=== PATIENT | female | born 1985 | race Caucasian/White ===

== ENCOUNTER 2023-05-22 10:03 | Day surgery (SDC) | payer MEDICAID ==
[~2023-05-22] VITALS: Ht 149.9 cm; Wt 75.3 kg
[2023-05-22] MEDS ORDERED: ONDANSETRON 4 MG/2 ML VIAL ONE ×2 (11:42→12:15)
[2023-05-22] MEDS ORDERED: KETOROLAC 30 MG/ML VIAL ONE ×2 (11:42→12:15)
[2023-05-22] MEDS ORDERED: PROPOFOL 200 MG/20 ML VIAL IV ONE ×2 (11:42→12:15)
[2023-05-22] MEDS ORDERED: DEXAMETHASONE 4 MG/ML VIAL ONE ×2 (11:42→12:15)
[2023-05-22] MEDS ORDERED: METHYLERGONOVINE 0.2 MG/ML AMP ONE ×2 (12:15→12:34)
[2023-05-22] MEDS ORDERED: DESFLURANE 240 ML BTL INH ONE (12:15)
[2023-05-22] MEDS ORDERED: fentaNYL citrate 0.05 MG/ML VIAL ONE (12:18)
[2023-05-22] MEDS ORDERED: HYDROmorphone PFS 2 MG/ML SYR ONE (12:48)
[2023-05-22] MEDS ORDERED: ONDANSETRON 4 MG/2 ML VIAL IVP PRN (12:50)
[2023-05-22] MEDS ORDERED: HYDROmorphone 1 MG/ML AMP IVP PRN (12:50)
== END 2023-05-22 15:26 | disposition home or self-care (01) ==
LOC: MDS 10:03 → MMU 10:05 → MDS 15:26
PROVIDERS: ATTEND Obstetrics & Gynecology
DX: O02.1 Missed abortion (principal); Z80.0 Family history of malignant neoplasm of digestive organs; Z90.49 Acquired absence of other specified parts of digestive tract; Z98.82 Breast implant status
CPT/HCPCS: 59820; 88305; J1100; J1170; J1885; J2210; J2405; J2704; J3010; J7120